=== PATIENT | female | born 1980 | race Caucasian/White ===

== ENCOUNTER 2017-07-31 18:41 | Outpatient (CLI) | END 2017-07-31 22:25 | disposition home or self-care (01) ==

== ENCOUNTER 2017-08-06 14:28 | Outpatient (CLI) | END 2017-08-06 16:25 | disposition home or self-care (01) ==

== ENCOUNTER 2017-08-17 06:35 | Inpatient (IN) | END 2017-08-19 13:50 | disposition home or self-care (01) | DRG 775 ==